=== PATIENT | female | born 2000 | race Caucasian/White ===

== ENCOUNTER 2019-11-25 16:55 | Emergency (ER) | payer OTHER ==
[2019-11-25 17:26] VITALS: BP 133/79; PULSE 105; TEMP 98.3; BMI 27.6
== END 2019-11-25 21:25 | disposition left against medical advice (07) ==
LOC: JERFT 16:55
DX: Z53.21 Procedure and treatment not carried out due to patient leaving prior to being seen by health care provider (principal)
CPT/HCPCS: 99281-25

== ENCOUNTER 2023-01-26 20:29 | Emergency (ER) | payer OTHER ==
[2023-01-26 20:40] VITALS: BP 110/77; PULSE 92; RESP 18; TEMP 99; BMI 25.0
[2023-01-26] MEDS ORDERED: ONDANSETRON *ODT* 4 MG TABLET SL ONE (21:07)
[2023-01-26] MEDS ORDERED: ONDANSETRON *ODT* 4 MG TABLET ONE (21:12)
[2023-01-26] MEDS ORDERED: SODIUM CHLORIDE 0.9% 500 ML INFUS.BAG IV ONE (21:47)
[2023-01-26] MEDS ORDERED: ACETAMINOPHEN 1000 MG/100 ML BAG IVPB ONE (21:47)
[2023-01-26] MEDS ORDERED: ACETAMINOPHEN INJECTION 100 ML IVPB ONE (21:55)
[2023-01-26 22:29] LABS: HEMOGLOBIN 13.7 GM/dL (10.7-15.3); MONO % 4.7 % (3.8-10.2); RDW 13.8 % (11.6-15.6)
[2023-01-26 22:35] LABS: BASO % 0.2 % (0-2.0); EOS % 2.9 % (0-4.5); HEMATOCRIT 40.8 % (32.4-45.2); LYMPH % 24.7 % (8-40); MCH 28.7 pg (25.7-33.7); MCHC 33.4 g/dl (32.0-36.0); MEAN CELL VOLUME 85.9 fl (80-96); MEAN PLT VOLUME 7.7 fl (7.5-11.1); NEUT % 67.5 % (42.8-82.8); PLATELET COUNT 349 10^3/uL (134-434); RBC 4.75 M/mm3 (3.60-5.2); WHITE BLOOD COUNT 7.5 K/mm3 (4.0-10.0)
[2023-01-26 22:55] LABS: ALBUMIN 3.8 g/dl (3.4-5.0)
[2023-01-26 22:56] LABS: BLOOD UREA NITROGEN 11.3 mg/dL (7-18)
[2023-01-26 22:58] LABS: CREATININE 0.6 mg/dL (0.55-1.3)
[2023-01-26 23:00] LABS: BILIRUBIN,TOTAL 0.9 mg/dL (0.2-1); TOT PROT 8.1 g/dl (6.4-8.2)
[2023-01-26] MEDS ORDERED: FAMOTIDINE 20 MG/50 ML IVPB 20 MG/50 ML MG IVPB ONE ×2 (23:21→23:28)
== END 2023-01-27 00:06 | disposition home or self-care (01) ==
LOC: JER 20:29
PROC: 3E033GC Introduction of Other Therapeutic Substance into Peripheral Vein, Percutaneous Approach (ICD-10-PCS; principal; 2023-01-26)
DX: R11.10 Vomiting, unspecified (principal)
CPT/HCPCS: 0241U-QW; 36415; 80053; 83690; 85025; 99284-25; Q0162